=== PATIENT | female | born 1975 | race Caucasian/White ===

== ENCOUNTER 2025-04-18 08:07 | Emergency (ER) | payer OTHER, SELFPAY ==
--- NOTE | 2025-04-18 08:08 | ED.URI ---
HPI - URI/Sore Throat General Chief Complaint: Upper Respiratory Infection Stated Complaint: Upper Respiratory Infection Time Seen by Provider: 04/18/25 08:08 Source: patient Mode of arrival: ambulatory Limitations: no limitations History of Present Illness HPI Narrative: Terri is a 49-year-old female patient presenting to the clinic today with complaints of nonproductive cough, sinus congestion, chest congestion, ear pain, and mild shortness of breath x6 days. She reports she has been taking Tylenol cold and ibuprofen for her symptoms. Denies any chest pain. States she feels more short of breath when she is up moving around and feeling fatigued. No known fevers, chills, body aches. She is a nonsmoker. No history of asthma or COPD. Related Data Home Medications ?Medication ?Instructions ?Recorded ?Confirmed ?Last Taken ?Type progesterone 50 mg/mL 5 mg IM DAILY 04/18/25 04/18/25 Unknown History intramuscular oil testosterone 37.5 mg implant pellet mg implant 04/18/25 Unknown History Allergies Allergy/AdvReac Type Severity Reaction Status Date / Time No Known Allergies Allergy Verified 04/18/25 08:19 Review of Systems Review of Systems: Pertinent positives per HPI. Patient denies any fever, chills, rash, headache, visual changes, dizziness, sore throat, chest pain, palpitations, nausea, vomiting, diarrhea, constipation, abdominal pain, or any urinary issues. PMFSH Comments At the time of my signature, I reviewed and agree with the nursing past medical, surgical, social, and family history. There is no relevant family history pertinent to the patient complaint. Exam Narrative: General: Well-developed, well nourished, in no apparent distress Head: Normocephalic, atraumatic Eyes: Pupils equally round and reactive to light bilaterally, EOM intact, sclera and conjunctive clear, no discharge, lids normal Ears: TMs intact and congested, ear canals clear, no drainage, grossly hearing normal. Nose: Nares patent, clear nasal discharge, mild inflammation, no sinus tenderness. Mouth: Oropharynx without lesions or masses, good dentition, MMM. Postnasal drip Neck: Supple, trachea midline, no enlargement of anterior or posterior cervical nodes, no thyroid masses or goiter palpable. Cardio: Regular rate and rhythm, s1 and s2 normal, no murmur appreciated. Resp: Faint wheezing posterior left upper lobe otherwise clear, no rhonchi, rales, or rubs Course Course Emergency Course: Portions of this record may have been created with voice recognition software. Level of Care: Express Care Visit Vital Signs Vital signs: Vital Signs Temperature 36.9 C 04/18/25 08:18 Pulse Rate 101 H 04/18/25 08:18 Respiratory Rate 18 04/18/25 08:18 Blood Pressure 114/86 04/18/25 08:18 Pulse Oximetry 100 04/18/25 08:18 Oxygen Delivery Room Air 04/18/25 08:18 Temperature 36.9 C 04/18/25 08:18 Pulse Rate 101 H 04/18/25 08:18 Respiratory Rate 18 04/18/25 08:18 Blood Pressure 114/86 04/18/25 08:18 Pulse Oximetry 100 04/18/25 08:18 Oxygen Delivery Room Air 04/18/25 08:18 Vital signs reviewed MDM - URI/Sore Throat MDM Narrative Medical decision making narrative: At the time of visit patient is resting comfortably on the exam table. Patient appears to be nontoxic. Patient has faint wheezing in the left upper posterior low, nasal congestion, ear pain nonproductive cough, and mild shortness of breath. No sign of bacterial infection in the clinic today. Denies any fevers, chills, body aches. No chest pain. No history of COPD or asthma and she is a nonsmoker. Offered chest x-ray and patient declined. Plan: I suspect patient has URI/bronchitis. Prescription for albuterol inhaler, Tessalon Perles, and prednisone was sent to the pharmacy. Supportive measures were discussed with the patient and they voiced understanding discharge instructions and agrees to treatment plan. Return precautions reviewed Differential Diagnosis Differential diagnosis: Likely upper respiratory infection, otitis media, sinusitis, viral infection, bronchitis, influenza, pharyngitis and other (COVID) Discharge Plan Discharge Clinical Impression: Bronchitis Upper respiratory infection Qualifiers: URI type: unspecified URI Qualified Code(s): J06.9 - Acute upper respiratory infection, unspecified Patient Disposition: Home Condition: Stable Instructions: Antibiotic Form, Upper Respiratory Infection (ED), Acute Bronchitis (ED) Additional Instructions: Take prescription medications only as prescribed-prednisone, Tessalon Perles, and albuterol inhaler Increase fluids and stay well hydrated Tylenol/motrin for pain/fever Flonase and OTC antihistamines as directed Vicks vapor rub to open sinuses Sinus rinses for congestion Cepacol spray, cough drops, throat lozenges, warm tea with honey/lemon, gargle salt water to soothe throat BRAT diet for diarrhea Clear liquids x 24 hours then advance as tolerated for nausea/vomiting Go to the ED if you develop a worsening in your condition- high fever not controlled by Tylenol or Motrin, dehydration, weakness, lethargy, shortness of breath, or chest pain. Follow up with your PCP in 3-5 days if symptoms persist. Patient Language: Khmer Prescriptions: New benzonatate 200 mg capsule 200 mg PO TID 7 Days Qty: 21 0RF prednisone 20 mg tablet 40 mg PO DAILY 5 Days Qty: 10 0RF albuterol sulfate 90 mcg/actuation HFA aerosol inhaler 2 puff inhalation Q4-6H PRN (Reason: shortness of breath or wheezing) 30 Days Qty: 8.5 0RF No Action progesterone 50 mg/mL oil 5 mg IM DAILY testosterone 37.5 mg pellet implant Follow-up/Referrals: UNKNOWN,DOCTOR [Non-Staff] - Stand Alone Forms: Work/School Release IP Time of Disposition: 08:25 Quality NIHSS Nursing Documentation ED NIHSS nursing documentation: reviewed/agree
--- OUTSIDE RECORDS SUMMARY | 2025-04-18 08:15 | XMS_ITS | Clinical Summary ---
Author Organization [facility] [address] [employer] Address [address] [place] [address] Care Team Providers Care Digital Media Intern Name Role Phone No, Physician Primary Care Provider [phone] Allergies Active Allergy Reactions Criticality Noted Date Comments Adhesive Swelling Medium 09/08/2021 Latex Swelling Medium 09/01/2021 Medications cetirizine (ZyrTEC) 10 mg tabletIndicatio ns:Seasonal Allergic Rhinitis Take 10 mg by mouth every morning Active multivitamin capsuleIndicati ons:Vitamin Deficiency Prevention Take 1 capsule by mouth every morning Active Lactobac no.41/Bifidobac t no.7 (PROBIOTIC-10 ORAL)Indication s:supplement Take 1 capsule by mouth every morning Active sodium chloride (OCEAN) 0.65 % nasal spray Administer 3 sprays into each nostril 5 (five) times a day 60 mL 1 1 Active fluticasone propionate (FLONASE) 50 mcg/actuation nasal spray Administer 1 spray into each nostril daily 1 each 2 2 Active azelastine (ASTELIN) 137 mcg (0.1 %) nasal spray Administer 1 spray into each nostril daily Use in each nostril as directed 30 mL 2 2 Active Active Problems Problem Noted Date Diagnosed Date Nasal obstruction 07/15/2021 Overview (07/15/2021): Added automatically from request for surgery [id number] Closed fracture of nasal bones 07/15/2021 Overview (07/15/2021): Added automatically from request for surgery [id number] Nasal deformity 06/17/2021 Hypertrophy of both inferior nasal turbinates Deviated nasal septum 06/17/2021 Surgical History Surgery Date Site/Laterality Comments BREAST SURGERY 10/11/2008 - 10/10/2009 Bilateral augmentation Medical History Medical History Date Comments Allergic rhinitis Family History Medical History Relation Name Comments No Known Problems Father No Known Problems Mother Anesthesia problems Neg Hx Relation Name Status Comments Father Mother Social History Tobacco Use Types Packs/Day Years Used Date Smoking Tobacco: Never Smokeless Tobacco: Never AUDIT-C Answer Date Recorded Q1: How often do you have a drink containing alc ohol? Never 09/01/2021 Average Number of Drinks Not on file 021 Frequency of Binge Drinking Not on file 08/12 Comments No Sex and Gender Information Value Date Recorded Sex Assigned at Not on file Legal Sex Female 1:14 PM CDT Gender Identity Not on file Sexual Orientation Not on file Obstetrics History Last Filed Vital Signs Vital Sign Reading Time Taken Comments Blood Pressure 121/73 09/11/2021 2:15 PM MACHINE STACKER Pulse 77 09/11/2021 2:15 PM MACHINE STACKER Temperature 37.2 C (99 F) 09/11/2021 1:35 PM MACHINE STACKER Respiratory Rate 14 09/11/2021 2:15 PM MACHINE STACKER Oxygen Saturation 91% 09/11/2021 2:15 PM MACHINE STACKER Inhaled Oxygen Concentration - - Weight 60.8 kg (134 lb) 09/11/2021 8:18 AM MACHINE STACKER Height 162.6 cm (5' 4) 09/11/2021 8:18 AM MACHINE STACKER Body Mass Index 23 09/11/2021 8:18 AM MACHINE STACKER Plan of Treatment Not on file Insurance [employer] PPO [employer] Care Teams Digital Media Intern Relationship Specialty Start Date End Date No, Physician PCP - General 05/27/21
--- OUTSIDE RECORDS SUMMARY | 2025-04-18 08:15 | XMS_ITS | Referral Summary ---
Author Organization [facility] [[email or web address]] [address] [employer] Address [address] [place] [address] Care Team Providers Care Clinical Pharmacist Name Role Phone No, Physician Primary Care Provider [phone] Allergies Active Allergy Reactions Criticality Noted Date [...] (07/15/2021): Added automatically from request for surgery [id number] Closed fracture of nasal bones 07/15/2021 Overview (07/15/2021): Added automatically from request for surgery [id number] Nasal deformity 06/17/2021 Hypertrophy of both inferior nasal turbinates Deviated nasal septum 06/17/2021 Social History Tobacco Use Types Packs/Day Years [...] on file Sexual Orientation Not on file Last Filed Vital Signs Vital Sign Reading Time Taken Comments Blood Pressure 121/73 09/11/2021 2:15 PM LEGAL COORDINATOR Pulse 77 09/11/2021 2:15 PM LEGAL COORDINATOR Temperature 37.2 C (99 F) 09/11/2021 1:35 PM LEGAL COORDINATOR Respiratory Rate 14 09/11/2021 2:15 PM LEGAL COORDINATOR Oxygen Saturation 91% 09/11/2021 2:15 PM LEGAL COORDINATOR Inhaled Oxygen Concentration - - Weight 60.8 kg (134 lb) 09/11/2021 8:18 AM LEGAL COORDINATOR Height 162.6 cm (5' 4) 09/11/2021 8:18 AM LEGAL COORDINATOR Body Mass Index 23 09/11/2021 8:18 AM LEGAL COORDINATOR Plan of Treatment Not on file Insurance [employer] OPTIONS PPO [employer] PPO Care Teams Clinical Pharmacist Relationship Specialty Start Date End Date No, Physician PCP - General 05/27/21
--- OUTSIDE RECORDS SUMMARY | 2025-04-18 08:15 | XMS_ITS | Clinical Summary ---
Author Organization [facility] Address [address] [place] [address] Care Team Providers Care Ict Development Manager Name Role Phone Yelitza Smith NP Primary Care Provider [phone] Allergies Active Allergy Reactions Criticality Noted Date Comments Latex Swelling Medium 09/01/2021 Tape Swelling Medium 09/08/2021 Medications cetirizine 10 MG tablet Take 10 mg by mouth daily. Active Multiple Vitamin (MULTIVITAMIN) capsule Take 1 capsule by mouth daily. Active Probiotic Product (PROBIOTIC-10 OR) Active Active Problems No known active problems Immunizations Immunization Administration Dates Next Due PFIZER COVID-19 (SMALLS CAP), MRNA, LNP-S, PF, 30 MCG/0.3 ML LIEN-SUCROSE, IM 08/29/2021,02/03/2021,01/13/2021 Family History Medical History Relation Comments Alcohol Abuse Father [place] Father Alcohol Abuse Mother Scoliosis Mother Cancer Paternal Grandmother Relation Status Comments Father Mother Paternal Grandmother Social History Tobacco Use Types Packs/Day Years Used Date Smoking Tobacco: Never Smokeless Tobacco: Never Tobacco Cessation:Counseling Given: Not Answered Alcohol Use Standard Drinks/Week Comments Yes 0 (1 standard drink = 0.6 oz pur e alcohol) Social drinker PHQ-2 Answer Date Recorded PHQ-2 Score - If the patient scores above 3, please move on to questions 3-9 0 02/02/2022 Comments No Sex and Gender Information Value Date Recorded Sex Assigned at Not on file Legal Sex Female 10:53 AM CDT Gender Identity Not on file Sexual Orientation Not on file Last Filed Vital Signs Vital Sign Reading Time Taken Comments Blood Pressure 127/87 08/15/2023 5:35 AM INTRANET SPECIALIST Pulse 78 08/15/2023 5:35 AM INTRANET SPECIALIST Temperature 36.8 C (98.3 F) 08/15/2023 5:35 AM INTRANET SPECIALIST Respiratory Rate 16 08/15/2023 5:35 AM INTRANET SPECIALIST Oxygen Saturation 100% 08/15/2023 5:35 AM INTRANET SPECIALIST Inhaled Oxygen Concentration - - Weight 56.7 kg (125 lb) 08/15/2023 5:35 AM INTRANET SPECIALIST Height 162.6 cm (5' 4) 08/15/2023 5:35 AM INTRANET SPECIALIST Body Mass Index 21.46 08/15/2023 5:35 AM INTRANET SPECIALIST Plan of Treatment Health Maintenance Due Date Last Done Comments Cervical Cancer Screening Pa p Smear (Age 30 to 64) Every 3 Years 1976 Colorectal Cancer Screening Colonoscopy (10 Years) 1976 Annual Physical 1979 Hepatitis C 1994 DTaP, Tdap and Td Vaccines ( 1 - Tdap) 1995 Hepatitis B Vaccines (1 of 3 - 19+ 3-dose series) 1995 Cervical Cancer Screening Pa p with HPV Testing (Age 30 to 64) Every 5 Years 2006 Cervical Cancer Screening wi HPV 2006 COVID-19 Vaccine (2023-2 5 season) 2024 08/29/2021, 02/03/2021, 01/13/2021 Mammogram Screening 06/22/2024 06/22/2022 Meningococcal B Vaccine Aged Out No l onger eligible based on patient's age to complete this topic Meningococcal Vaccine Aged Out No christiano lionel eligible based on patient's age to complete this topic Pneumococcal Vaccine: Pediatrics (0 to 5 Years) and At-Risk Patients (6 to 49 Years) Aged Out No longer eligible b ased on patient's age to complete this topic RSV Immunizations Under 20 Months Aged Out No longer eligible b ased on patient's age to complete this topic Procedures Procedure Name Priority Date/Time Associated Diagnosis Comments MG SCREENING IMPLANT W YUKI ESTER DIGI Routine 06/22/2022 11:30 AM CDT Encounter for screening mammogram for breast cancer from Last 3 Months or Most Recently Relevant to Health Maintenance Results * MG SCREENING IMPLANT W YUKI ESTER DIGI (06/22/2022 11:30 AM CDT) Anatomical Region Laterality Modality Breast Bilateral Mammography 06/22/2022 12:3 7 PM CDT Impressions 06/22/2022 12:49 PM CDT IMPRESSION: 1. No mammographic evidence of malignancy. 2. BI-RADS Category 1 - negative. MQSA BI-RADS Categories: Category 0 - needs additional imaging evaluation. Category 1 - negative. Category 2 - benign findings. Category 3 - probably benign findings, but short interval follow-up is recommended. Category 4 - suspicious abnormality and biopsy should be considered though the lesion may well be benign. Category 5 - highly suggestive of malignancy and appropriate action should be taken. Category 6 - known biopsy-proven malignancy A) A negative report should not delay a biopsy if a dominant or clinically suspicious mass is present. B) Adenosis and dense breasts may obscure an underlying neoplasm. C) Study interpreted with computer aided detection. Ordered By: MILLIE MARIN Interpreted By: Mila Montero, 06/22/2022 12:37 PM Narrative 06/22/2022 12:49 PM CDT IMAGING STUDIES: Bilateral screening mammograms with computer-aided detection with 2-D and 3-D imaging. Tomosynthesis. DATE: 06/22/2022 10:52 AM HISTORY: Encounter for screening mammogram for breast cancer . Bilateral breast implants in 2008. COMPARISON: Baseline exam TISSUE TYPE: The breast tissue is heterogeneously dense, which may obscure small masses. FINDINGS: 1. Bilateral screening mammograms with computer detection with 2-D and 3-D imaging. Tomosynthesis. Moderately dense fibroglandular tissue pattern is present. This does limit sensitivity of mammography. Bilateral breast prostheses are intact 2. No malignant microcalfcifications, dominant masses, or architectural distortion. 3. No skin thickening or nipple retraction. Axillary regions are within normal limits. Millie Marin [facility] Final Result from Last 3 Months or Most Recently Relevant to Health Maintenance Insurance [facility] Care Teams Ict Development Manager Relationship Specialty [place] [id number] [place] [address] PCP - General Nurse Practitioner Family 01/21/22
[2025-04-18 08:18] VITALS: BP 114/86; PULSE 101; RESP 18; TEMP 36.9; O2SAT 100
== END 2025-04-18 08:29 | disposition home or self-care (01) ==
PROVIDERS: Emergency Provider Nurse Practitioner Family
DX: J40 Bronchitis, not specified as acute or chronic (principal); J06.9 Acute upper respiratory infection, unspecified
CPT/HCPCS: 99203; G0463